=== PATIENT | female | born 1975 | race Caucasian/White ===

== ENCOUNTER 2020-08-05 09:18 | Inpatient (IN) ==
[2020-08-05] MEDS ORDERED: 0.9 % SODIUM CHLORIDE 1,000 ML IV ONE (09:34)
[2020-08-05] MEDS ORDERED: methylPREDNISolone SOD SUCC 40 MG/ML VIAL IV ONE (09:54)
[2020-08-05] MEDS ORDERED: IPRATROPIUM/ALBUTEROL 3 ML AMPUL.NEB NEB ONE (09:54)
--- NOTE | 2020-08-05 10:01 | Emergency Department Note ---
SOB HPI General Chief Complaint: Shortness of Breath/Dyspnea Stated Complaint: short of breath, covid positive Time Seen by Provider: 08/05/20 09:34 Source: patient Mode of arrival: wheelchair Limitations: no limitations History of Present Illness HPI Narrative: Narrative: 45-year-old female comes in for a 9-day history of Covid test positive with worsening shortness of breath. She tested positive at [facility] with her PCP 9 days ago. This morning she could not catch her breath and so came in. She has been febrile nauseous not been able to eat much. She is able to urinate. Feels constipated Oxygen saturations in triage down to 89% with any movement but she is in the low 90s with Rest Related Data Home Medications Medication Instructions Recorded Confirmed buspirone 30 mg PO PRN 10/20/18 07/11/20 levothyroxine 50 mcg PO DAILY 10/20/18 07/11/20 Biest .5/1 PO 08/02/19 07/11/20 azelastine 137 mcg (0.1 %) nasal 2 spray INTRANASAL QDAY ml 08/02/19 07/11/20 spray aerosol budesonide-formoterol HFA 160 1 puff INHALATION BID g 08/02/19 07/11/20 mcg-4.5 mcg/actuation aerosol inhaler meclizine 12.5 mg tablet 12.5 mg PO .Q4-6H PRN tab 08/02/19 07/11/20 rizatriptan 10 mg disintegrating 10 mg PO ONCE PRN 11/22/19 07/11/20 tablet Previous Rx's Medication Instructions Recorded alprazolam 1 mg tablet 1 mg PO HSP PRN #30 tab 07/16/19 omeprazole 20 mg capsule,delayed 20 mg PO BID #60 cap 01/03/20 release bupropion HCl 150 mg 24 hr tablet, 150 mg PO QAM #90 tab 01/16/20 extended release semaglutide 1 mg/dose (2 mg/1.5 1 mg SUB-Q QWEEK #3 ml 01/16/20 mL) subcutaneous pen injector chlorthalidone 25 mg tablet 25 mg PO DAILY #90 tab 02/04/20 metformin 500 mg tablet 1,000 mg PO BID #360 tab 02/04/20 trazodone 50 mg tablet 100 mg PO QHS #180 tab 02/04/20 metoprolol succinate 25 mg See Rx Instructions .ROUTE 03/21/20 tablet,extended release 24 hr .COMPLEX #90 tab blood sugar diagnostic See Rx Instructions .ROUTE 04/07/20 .COMPLEX #100 strip lisinopril 10 mg tablet See Rx Instructions .ROUTE 05/06/20 .COMPLEX #90 tab fluvoxamine 50 mg tablet See Rx Instructions .ROUTE 05/21/20 .COMPLEX #90 tab albuterol sulfate 90 mcg/actuation 2 puff INHALATION .q4-6h PRN #8.5 g 07/04/20 aerosol inhaler insulin degludec 100 unit/mL (3 See Rx Instructions .ROUTE 07/09/20 mL) subcutaneous pen .COMPLEX #15 ml azithromycin 250 mg tablet See Rx Instructions PO .COMPLEX #6 07/11/20 tab insulin aspart U-100 100 unit/mL 20 unit SUB-Q TID #30 ml 07/11/20 (3 mL) subcutaneous pen amoxicillin 500 mg capsule 1,000 mg PO Q12H #40 cap 07/21/20 acetaminophen 300 mg-codeine 30 mg 1 - 2 tab PO Q6H PRN #30 tab 07/29/20 tablet ondansetron HCl 4 mg tablet 4 mg PO Q8H PRN #30 tab 07/29/20 Allergies Allergy/AdvReac Type Severity Reaction Status Date / Time pioglitazone [From Actos] Allergy Mild Swelling Verified 08/05/20 09:22 phentermine Allergy Unknown Palpitation Verified 08/05/20 09:22 s Hay Fever Allergy Unknown dust and Uncoded 07/29/20 13:32 pollen Review of Systems ROS ROS Narrative: Narrative: All systems ED: reviewed and negative except as stated. [facility] Narrative Patient History Narrative: Narrative: Medical/Surgical/Family History All Active Problems (Updated 08/05/20 @ 10:35 by Mina Mendez MD) Pneumonia due to 2019 novel coronavirus (Acute) Sinusitis (Acute) Viral syndrome (Acute) Cough (Acute) Esophageal dysmotility (Chronic) History of colonoscopy (Chronic ~2003) Edema (Chronic) Obsessive-compulsive personality disorder (Chronic) Essential (primary) hypertension (Chronic) Hyperlipidemia, unspecified (Chronic) Anemia (Chronic) Type 2 diabetes mellitus without complications (Chronic) Contraception, device intrauterine, checking (Chronic) Adult hypothyroidism (Chronic) Migraine with aura, intractable, with status migrainosus (Chronic) Type 2 diabetes mellitus with hyperglycemia (Chronic) Obesity (Chronic) Adult general medical exam (Chronic) Insomnia (Chronic) Anxiety (Chronic) Depression (Chronic) Body mass index (BMI) 35 or more (Chronic) Dysuria (Chronic) Candidal vaginitis (Chronic) Lumbar back pain (Chronic) Menopausal symptoms (Chronic) Diffuse spasm of esophagus (Chronic) Palpitations (Chronic) Vertigo (Chronic) History of hysterectomy with bilateral oophorectomy (Chronic) LAP-BAND surgery status (Chronic) History of bladder surgery (Chronic) Hx of tonsillectomy (Chronic) History of section (Chronic) Enlarged uterus (Chronic) Ovarian cyst (Chronic) Medical History Adult general medical exam (Chronic) Adult hypothyroidism (Chronic) Anemia (Chronic) Anxiety (Chronic) Body mass index (BMI) 35 or more (Chronic) Candidal vaginitis (Chronic) Chronic lumbar pain (Acute) Contraception, device intrauterine, checking (Chronic) Cough (Acute) Depression (Chronic) Diffuse spasm of esophagus (Chronic) Dysuria (Chronic) Esophageal dysmotility (Chronic) Essential (primary) hypertension (Chronic) Hyperlipidemia, unspecified (Chronic) Insomnia (Chronic) Lumbar back pain (Chronic) Menopausal symptoms (Chronic) Migraine with aura, intractable, with status migrainosus (Chronic) Obesity (Chronic) Obsessive-compulsive personality disorder (Chronic) Palpitations (Chronic) Type 2 diabetes mellitus with hyperglycemia (Chronic) Type 2 diabetes mellitus without complications (Chronic) Vertigo (Chronic) Viral syndrome (Acute) Surgical History History of bladder surgery (Chronic) 08/2007 History of section (Chronic) 10/2002 & 06/2005 History of colonoscopy (Chronic ~2003) Dr Ramirez History of hysterectomy with bilateral oophorectomy (Chronic) Total Hysterectomy 12/2018 Hx of tonsillectomy (Chronic) 1980 LAP-BAND surgery status (Chronic) 12/2010 - No longer usable. Family History Mother Thyroid disease Father Alcoholism Hypertension Diabetes Daughter No problems noted. Brother Alcoholism Hypertension Grandmother Glaucoma maternal & paternal Hypertension paternal Colon cancer paternal Diabetes paternal Alcoholism paternal Emphysema lung paternal Grandfather Hypertension paternal Alcoholism paternal Diabetes paternal Social History Smoking Status: Former smoker Alcohol Intake Frequency: 0-2 drinks per day Substance Use: does not use Exam Narrative Narrative: Narrative:No acute distress resting however when she starts to talk she does have some wheezing.Normocephalic atraumatic. Conjunctive are clear sclerae white nonicteric. No nasal discharge or congestion. Oropharynx pink but with dry buccal mucosa.Neck is supple without lymphadenopathy or thyromegaly. Heart is regular rhythm but mildly tachycardic. Lungs with wheezing scattered rhonchi. She is working a little bit harder than normal to breathe. Abdomen is soft nontender nondistended. No pedal edema. Alert oriented General Limitations: no limitations Course Vital Signs Vital signs: Vital Signs Temperature 101.6 F H 08/05/20 09:19 Pulse Rate 102 H 08/05/20 09:19 Respiratory Rate 24 H 08/05/20 09:19 Blood Pressure 113/78 08/05/20 09:19 Pulse Oximetry (%) 92 08/05/20 09:19 Temperature 99.6 F H 08/05/20 11:52 Pulse Rate 84 08/05/20 11:31 Respiratory Rate 12 08/05/20 11:31 Blood Pressure 125/84 08/05/20 11:31 Pulse Oximetry (%) 94 08/05/20 11:31 MDM MDM Narrative Medical decision making narrative: Narrative: So increasing worsening Covid symptoms including shortness of breath now. We will go ahead and get ABG chest x-ray EKG and start her on treatment with Solu-Medrol and DuoNeb. Laboratory and IV fluid is ordered Breathing treatment did not help. Her oxygen levels continue to drop into the high 80s with any movement. Chest x-ray shows left lower lobe pneumonia associated with Covid. We will start remdesivir. She will need to come in the hospital Discussed the case with Dr. Marquez, our hospitalist. He agreed To accept the patient for further care and evaluation in the hospital Lab Data Lab results reviewed: Yes I reviewed the patient's lab results. Lab results narrative: Arterial blood gas shows a pH of 7.48 PCO2 33 PO2 of 62 on room air Result diagrams: 08/05/20 09:47 08/05/20 09:46 Labs: Lab Results 08/05/20 08/05/20 08/05/20 Range/Units 09:46 09:47 09:47 WBC 6.1 (4.5-11.0) K/mcL RBC 4.56 (4.00-5.20) M/mcL Hgb 13.5 (12.0-15.0) g/dL Hct 39.8 (36.0-48.0) % MCV 87.3 (80.0-100.0) fL MCH 29.6 (26.0-34.0) pg MCHC 33.9 (31.0-36.0) g/dL RDW 12.6 (11.5-14.5) % Plt Count 255 (140-440) K/mcL MPV 11.6 H (7.4-10.4) fL Neut % (Auto) 79.2 H (38.0-78.0) % Lymph % (Auto) 15.6 (15.0-49.0) % [place] % (Auto) 4.8 (1.0-12.0) % Eos % (Auto) 0.2 (0.0-7.0) % Baso % (Auto) 0.2 (0.0-2.0) % Lymph # (Auto) 0.95 L (1.50-4.80) K/mcL [place] # (Auto) 0.29 (0.10-0.90) K/mcL Eos # (Auto) 0.01 (0.00-0.70) K/mcL Baso # (Auto) 0.01 (0.00-0.20) K/mcL Absolute Neutrophils 4.83 (1.80-8.00) K/mcL VBG Lactic Acid 1.3 (0.5-2.0) mmol/L Sodium 134 (133-145) mmol/L Potassium 3.6 (3.3-5.1) mmol/L Chloride 98 (96-108) mmol/L Carbon Dioxide 22 (22-30) mmol/L Anion Gap 14.0 (8.0-16.0) BUN 10 (6-20) mg/dL Creatinine 1.0 (0.6-1.1) mg/dL GFR Calculation 68 Glucose 162 H (70-105) mg/dL Calcium 8.1 L (8.6-10.4) mg/dL Magnesium 1.9 (1.6-2.5) mg/dL Total Bilirubin 0.4 (0.1-1.0) mg/dL AST 45 H (<32) U/L ALT 45 H (<40) U/L Alkaline Phosphatase 97 (39-117) U/L Troponin T (<0.03) ng/mL NT-Pro-B Natriuret Pep 26.7 (<125.0) pg/mL Total Protein 7.0 (5.9-8.4) gm/dL Albumin 3.8 (3.2-5.2) gm/dL Globulin 3.2 (2.2-3.7) gm/dL Albumin/Globulin Ratio 1.2 (1.0-2.3) Lipase 46 (7-60) U/L Procalcitonin (<0.10) ng/mL 08/05/20 08/05/20 Range/Units 09:47 09:47 WBC (4.5-11.0) K/mcL RBC (4.00-5.20) M/mcL Hgb (12.0-15.0) g/dL Hct (36.0-48.0) % MCV (80.0-100.0) fL MCH (26.0-34.0) pg MCHC (31.0-36.0) g/dL RDW (11.5-14.5) % Plt Count (140-440) K/mcL MPV (7.4-10.4) fL Neut % (Auto) (38.0-78.0) % Lymph % (Auto) (15.0-49.0) % [place] % (Auto) (1.0-12.0) % Eos % (Auto) (0.0-7.0) % Baso % (Auto) (0.0-2.0) % Lymph # (Auto) (1.50-4.80) K/mcL [place] # (Auto) (0.10-0.90) K/mcL Eos # (Auto) (0.00-0.70) K/mcL Baso # (Auto) (0.00-0.20) K/mcL Absolute Neutrophils (1.80-8.00) K/mcL VBG Lactic Acid (0.5-2.0) mmol/L Sodium (133-145) mmol/L Potassium (3.3-5.1) mmol/L Chloride (96-108) mmol/L Carbon Dioxide (22-30) mmol/L Anion Gap (8.0-16.0) BUN (6-20) mg/dL Creatinine (0.6-1.1) mg/dL GFR Calculation Glucose (70-105) mg/dL Calcium (8.6-10.4) mg/dL Magnesium (1.6-2.5) mg/dL Total Bilirubin (0.1-1.0) mg/dL AST (<32) U/L ALT (<40) U/L Alkaline Phosphatase (39-117) U/L Troponin T < 0.01 (<0.03) ng/mL NT-Pro-B Natriuret Pep (<125.0) pg/mL Total Protein (5.9-8.4) gm/dL Albumin (3.2-5.2) gm/dL Globulin (2.2-3.7) gm/dL Albumin/Globulin Ratio (1.0-2.3) Lipase (7-60) U/L Procalcitonin 0.12 H (<0.10) ng/mL Radiology Data Radiology results reviewed: Yes I reviewed the patient's radiology results. Radiology results narrative: One-view portable chest x-ray shows patchy infiltrate especially left lower lung EKG Data EKG #1: EKG attestation: Yes I reviewed and interpreted this EKG. EKG results narrative: EKG shows a rate of 97 sinus rhythm borderline low voltage in extremity leads Discharge Plan Patient/Caregiver Discharge Instructions Pt seen by [facility]/PA only: No Clinical Impression: Pneumonia due to 2019 novel coronavirus Patient Disposition: Xfer As Inpt ([facility]) Condition: Fair Follow up with: Malaika Cotter ARNP [Primary Care Provider] - Prescriptions: No Action semaglutide [Ozempic] 0.25 mg or 0.5 mg(2 mg/1.5 mL) pen injector RF: 0 omeprazole 20 mg capsule,delayed release(DR/EC) 20 mg PO BID Qty: 60 RF: 4 semaglutide 1 mg/dose (2 mg/1.5 mL) subcutaneous pen injector 1 mg/dose (2 mg/1.5 mL) pen injector 1 mg SUB-Q QWEEK Qty: 3 RF: 4 bupropion HCl 150 mg tablet extended release 24 hr 150 mg PO QAM Qty: 90 RF: 1 insulin aspart U-100 100 unit/mL (3 mL) insulin pen 20 unit SUB-Q TID Qty: 30 RF: 6 azithromycin [Zithromax] 250 mg tablet See Rx Instructions PO .COMPLEX Qty: 6 RF: 0 amoxicillin 500 mg capsule 1,000 mg PO Q12H Qty: 40 RF: 0 ondansetron HCl [Zofran] 4 mg tablet 4 mg PO Q8H PRN (Reason: nausea and vomiting) Qty: 30 RF: 0 acetaminophen-codeine 300-30 mg tablet 1 - 2 tab PO Q6H PRN (Reason: Pain) Qty: 30 RF: 3 alprazolam 1 mg tablet 1 mg PO HSP PRN (Reason: Anxiety) Qty: 30 RF: 1 trazodone 50 mg tablet 100 mg PO QHS Qty: 180 RF: 3 chlorthalidone 25 mg tablet 25 mg PO DAILY Qty: 90 RF: 3 metformin [Glucophage] 500 mg tablet 1,000 mg PO BID Qty: 360 RF: 3 metoprolol succinate 25 mg tablet extended release 24 hr See Rx Instructions .ROUTE .COMPLEX Qty: 90 RF: 0 blood sugar diagnostic [Contour Next Test Strips] Strip See Rx Instructions .ROUTE .COMPLEX Qty: 100 RF: 3 lisinopril 10 mg tablet See Rx Instructions .ROUTE .COMPLEX Qty: 90 RF: 1 fluvoxamine 50 mg tablet See Rx Instructions .ROUTE .COMPLEX Qty: 90 RF: 1 insulin degludec [Tresiba FlexTouch U-100] 100 unit/mL (3 mL) insulin pen See Rx Instructions .ROUTE .COMPLEX Qty: 15 RF: 3 Symbicort 160-4.5 mcg/actuation HFA aerosol inhaler 1 puff INHALATION BID RF: 0 azelastine 137 mcg (0.1 %) aerosol,spray 2 spray INTRANASAL QDAY RF: 0 Biest .5/1 PO RF: 0 meclizine 12.5 mg tablet 12.5 mg tablet 12.5 mg PO .Q4-6H PRNRF: 0 rizatriptan 10 mg tablet,disintegrating 10 mg PO ONCE PRNRF: 0 albuterol sulfate [ProAir HFA] 90 mcg/actuation HFA aerosol inhaler 2 puff INHALATION .q4-6h PRN (Reason: cough, shortness of breath, wheezing) Qty: 8.5 RF: 0 levothyroxine 50 MCG tablet 50 mcg PO DAILY RF: 0 buspirone 30 MG tablet 30 mg PO PRN (Reason: Anxiety/Sedation) RF: 0
--- NOTE | 2020-08-05 10:26 | XRay Report ---
CLINICAL INFORMATION: dyspnea COMPARISON: 12/09/2014 FINDINGS: Heart, mediastinum and pulmonary vessels are normal for technique. Minimal patchy infiltrate seen in the left midlung and right base. No effusion IMPRESSION: Mild patchy infiltrate left midlung and right base. Suggest two-view follow-up chest x-ray one to two days Interpreted and Authenticated by: Dewayne Thomas 08/05/20
[2020-08-05 10:27] LABS: Basophils # (Auto) 0.01 K/mcL (0.00-0.20); Basophils % (Auto) 0.2 % (0.0-2.0); Eosinophils # (Auto) 0.01 K/mcL (0.00-0.70); Eosinophils % (Auto) 0.2 % (0.0-7.0); Hematocrit 39.8 % (36.0-48.0); Hemoglobin 13.5 g/dL (12.0-15.0); Lymphocytes # (Auto) 0.95 K/mcL (1.50-4.80); Lymphocytes % (Auto) 15.6 % (15.0-49.0); Mean Cell Volume 87.3 fL (80.0-100.0); Mean Corpuscular HGB Conc 33.9 g/dL (31.0-36.0); Mean Platelet Volume 11.6 fL (7.4-10.4); Monocytes # (Auto) 0.29 K/mcL (0.10-0.90); Monocytes % (Auto) 4.8 % (1.0-12.0); Neutrophils % (Auto) 79.2 % (38.0-78.0); Platelet Count 255 K/mcL (140-440); RBC 4.56 M/mcL (4.00-5.20); Red Cell Distribution Width 12.6 % (11.5-14.5); WBC 6.1 K/mcL (4.5-11.0)
[2020-08-05 10:53] LABS: proBNP 26.7 pg/mL (<125.0)
[2020-08-05] MEDS ORDERED: REMDESIVIR 200 MG in 0.9 % SODIUM CHLORIDE 250 ML IV ONE (10:54)
[2020-08-05 10:55] LABS: ALT/SGPT 45 U/L (<40); AST/SGOT 45 U/L (<32); Albumin 3.8 gm/dL (3.2-5.2); Albumin/Globulin Ratio 1.2 (1.0-2.3); Alkaline Phosphatase 97 U/L (39-117); Bilirubin,Total 0.4 mg/dL (0.1-1.0); Blood Urea Nitrogen 10 mg/dL (6-20); Calcium 8.1 mg/dL (8.6-10.4); Carbon Dioxide 22 mmol/L (22-30); Chloride 98 mmol/L (96-108); Globulin 3.2 gm/dL (2.2-3.7); Glomerular Filtration Rate 68; Glucose 162 mg/dL (70-105)
[2020-08-05] MEDS ORDERED: ONDANSETRON 4 MG/2 ML VIAL IV PRN ×2 (12:36→13:53)
[2020-08-05] MEDS ORDERED: ALBUTEROL SULFATE 2.5 MG/3 ML NEBULIZER INH PRN ×2 (12:36→13:53)
[2020-08-05] MEDS ORDERED: IPRATROPIUM/ALBUTEROL 3 ML AMPUL.NEB NEB PRN (12:36)
[2020-08-05] MEDS ORDERED: AZITHROMYCIN 500 MG in DEXTROSE 5% IN WATER 250 ML IV SCH (12:45)
[2020-08-05] MEDS ORDERED: cefTRIAXone 2 GM in DEXTROSE 5% IN WATER 50 ML IV SCH (12:45)
[2020-08-05] MEDS ORDERED: hydrALAZINE 20 MG/ML VIAL IV PRN ×2 (12:48→13:53)
[2020-08-05] MEDS ORDERED: 0.9 % SODIUM CHLORIDE 10 ML SYRINGE IV SCH (14:00)
[2020-08-05] MEDS ORDERED: METOCLOPRAMIDE 10 MG/2 ML VIAL IV PRN (14:15)
[2020-08-05] MEDS ORDERED: DEXTROSE 31 GM ORAL.SUSP PO PRN (14:15)
[2020-08-05] MEDS ORDERED: DEXTROSE 50% 50 ML VIAL IV PRN (14:15)
--- NOTE | 2020-08-05 14:25 | Internal Med History&Physical ---
HPI History of Present Illness Patient information: Note initiated : 08/05/20 at 2:16 pm Service Date, if different from initiated Date: [] Patient: Marisela Carr a 45 y/o F admitted on 08/05/20 for SOB, COVID Positive. Chief Complaint: [] History of present illness: Ms. Carr is a 45 year old F with a history of high blood pressure, diabetes type 2 and hypothyroidism who presented to the ER due to shortness of breath. As per patient, she was diagnosed with COVID-19 9 days ago. Today she feels shortness of breath and went to the ER. In the ER, she was found to have oxygen desaturation 89%. Chest x-ray showed mild patchy infiltrate left midlung and right base. When I saw this patient, other than the symptoms mentioned above, patient with a fine. Review of Systems All systems: reviewed and no additional remarkable complaints except as stated PFSH PFSH All Active Problems Pneumonia due to 2019 novel coronavirus (Acute) Sinusitis (Acute) Viral syndrome (Acute) Cough (Acute) Esophageal dysmotility (Chronic) History of colonoscopy (Chronic ~2004) Edema (Chronic) Obsessive-compulsive personality disorder (Chronic) Essential (primary) hypertension (Chronic) Hyperlipidemia, unspecified (Chronic) Anemia (Chronic) Type 2 diabetes mellitus without complications (Chronic) Contraception, device intrauterine, checking (Chronic) Adult hypothyroidism (Chronic) Migraine with aura, intractable, with status migrainosus (Chronic) Type 2 diabetes mellitus with hyperglycemia (Chronic) Obesity (Chronic) Adult general medical exam (Chronic) Insomnia (Chronic) Anxiety (Chronic) Depression (Chronic) Body mass index (BMI) 35 or more (Chronic) Dysuria (Chronic) Candidal vaginitis (Chronic) Lumbar back pain (Chronic) Menopausal symptoms (Chronic) Diffuse spasm of esophagus (Chronic) Palpitations (Chronic) Vertigo (Chronic) History of hysterectomy with bilateral oophorectomy (Chronic) LAP-BAND surgery status (Chronic) History of bladder surgery (Chronic) Hx of tonsillectomy (Chronic) History of section (Chronic) Enlarged uterus (Chronic) Ovarian cyst (Chronic) Medical History Adult general medical exam (Chronic) Adult hypothyroidism (Chronic) Anemia (Chronic) Anxiety (Chronic) Body mass index (BMI) 35 or more (Chronic) Candidal vaginitis (Chronic) Chronic lumbar pain (Acute) Contraception, device intrauterine, checking (Chronic) Cough (Acute) Depression (Chronic) Diffuse spasm of esophagus (Chronic) Dysuria (Chronic) Esophageal dysmotility (Chronic) Essential (primary) hypertension (Chronic) Hyperlipidemia, unspecified (Chronic) Insomnia (Chronic) Lumbar back pain (Chronic) Menopausal symptoms (Chronic) Migraine with aura, intractable, with status migrainosus (Chronic) Obesity (Chronic) Obsessive-compulsive personality disorder (Chronic) Palpitations (Chronic) Type 2 diabetes mellitus with hyperglycemia (Chronic) Type 2 diabetes mellitus without complications (Chronic) Vertigo (Chronic) Viral syndrome (Acute) Surgical History History of bladder surgery (Chronic) 08/2007 History of section (Chronic) 10/2002 & 06/2005 History of colonoscopy (Chronic ~2003) Dr Ramirez History of hysterectomy with bilateral oophorectomy (Chronic) Total Hysterectomy 12/2018 Hx of tonsillectomy (Chronic) 1980 LAP-BAND surgery status (Chronic) 12/2010 - No longer usable. Family History Mother Thyroid disease Father Alcoholism Hypertension Diabetes Daughter No problems noted. 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 smoking status: Former smoker alcohol intake frequency: 0-2 drinks per day substance use type: does not use gerardo/catholic: Other special gerardo needs: No additional history: Has twins MEDS/ALLERGIES Home Medications and Allergies Home Medications Medication Instructions Recorded Confirmed Type buspirone 30 mg PO PRN 10/20/18 07/11/20 History levothyroxine 50 mcg PO DAILY 10/20/18 07/11/20 History alprazolam 1 mg tablet 1 mg PO HSP PRN #30 tab 07/16/19 07/11/20 Rx Biest .5/1 PO 08/02/19 07/11/20 History azelastine 137 mcg (0.1 %) nasal 2 spray INTRANASAL QDAY ml 08/02/19 07/11/20 History spray aerosol budesonide-formoterol HFA 160 1 puff INHALATION BID g 08/02/19 07/11/20 History mcg-4.5 mcg/actuation aerosol inhaler meclizine 12.5 mg tablet 12.5 mg PO .Q4-6H PRN tab 08/02/19 07/11/20 History rizatriptan 10 mg disintegrating 10 mg PO ONCE PRN 11/22/19 07/11/20 History tablet omeprazole 20 mg capsule,delayed 20 mg PO BID #60 cap 01/03/20 07/11/20 Rx release bupropion HCl 150 mg 24 hr tablet, 150 mg PO QAM #90 tab 01/16/20 07/11/20 Rx extended release semaglutide 1 mg/dose (2 mg/1.5 1 mg SUB-Q QWEEK #3 ml 01/16/20 07/11/20 Rx mL) subcutaneous pen injector chlorthalidone 25 mg tablet 25 mg PO DAILY #90 tab 02/04/20 07/11/20 Rx metformin 500 mg tablet 1,000 mg PO BID #360 tab 02/04/20 07/11/20 Rx trazodone 50 mg tablet 100 mg PO QHS #180 tab 02/04/20 07/11/20 Rx metoprolol succinate 25 mg See Rx Instructions .ROUTE 03/21/20 07/11/20 Rx tablet,extended release 24 hr .COMPLEX #90 tab blood sugar diagnostic See Rx Instructions .ROUTE 04/07/20 07/11/20 Rx .COMPLEX #100 strip lisinopril 10 mg tablet See Rx Instructions .ROUTE 05/06/20 07/11/20 Rx .COMPLEX #90 tab fluvoxamine 50 mg tablet See Rx Instructions .ROUTE 05/21/20 07/11/20 Rx .COMPLEX #90 tab albuterol sulfate 90 mcg/actuation 2 puff INHALATION .q4-6h PRN #8.5 g 07/04/20 07/11/20 Rx aerosol inhaler insulin degludec 100 unit/mL (3 See Rx Instructions .ROUTE 07/09/20 07/11/20 Rx mL) subcutaneous pen .COMPLEX #15 ml azithromycin 250 mg tablet See Rx Instructions PO .COMPLEX #6 07/11/20 07/11/20 Rx tab insulin aspart U-100 100 unit/mL 20 unit SUB-Q TID #30 ml 07/11/20 07/11/20 Rx (3 mL) subcutaneous pen amoxicillin 500 mg capsule 1,000 mg PO Q12H #40 cap 07/21/20 07/21/20 Rx acetaminophen 300 mg-codeine 30 mg 1 - 2 tab PO Q6H PRN #30 tab 07/29/20 07/29/20 Rx tablet ondansetron HCl 4 mg tablet 4 mg PO Q8H PRN #30 tab 07/29/20 07/29/20 Rx Allergies Allergy/AdvReac Type Severity Reaction Status Date / Time pioglitazone [From Actos] Allergy Mild Swelling Verified 08/05/20 09:22 phentermine Allergy Unknown Palpitation Verified 08/05/20 09:22 s Hay Fever Allergy Unknown dust and Uncoded 07/29/20 13:32 pollen EXAM Constitutional Vitals: Temp Pulse Resp BP Pulse Ox 98.6 F 95 H 18 139/95 94 08/05/20 13:54 08/05/20 13:54 08/05/20 13:54 08/05/20 13:54 08/05/20 13:54 Additional findings Additional findings: General: Alert, Awake, No acute Distress Eyes/N/T: EOMI, PERRL, dry MM Head/Neck: neck supple no meningismus , normocephalic atraumatic CV: RRR, No murmurs, normal s1/s2 Pulm: Coarse breathing sounds Abd: soft, nontender, +BS x4 Ext: no clubbing/cyanosis/edema Neuro: Alert & Oriented x 2, no focal neurological deficits Skin: warm/dry Psych: Normal mood DATA Data Completed and Pending Labs: Labs from last 24 hours 08/05/20 08/05/20 08/05/20 13:20 13:20 13:20 WBC RBC Hgb Hct MCV MCH MCHC RDW Plt Count MPV Neut % (Auto) Lymph % (Auto) Garvin % (Auto) Eos % (Auto) Baso % (Auto) Lymph # (Auto) Garvin # (Auto) Eos # (Auto) Baso # (Auto) Absolute Neutrophils D-Dimer Pending VBG Lactic Acid Pending Sodium Potassium Chloride Carbon Dioxide Anion Gap BUN Creatinine GFR Calculation Glucose Hemoglobin A1c Pending Estim Average Glucose Pending Calcium Phosphorus Pending Magnesium Pending Ferritin Pending Total Bilirubin AST ALT Alkaline Phosphatase Troponin T C-Reactive Protein Pending NT-Pro-B Natriuret Pep Total Protein Albumin Globulin Albumin/Globulin Ratio Lipase Procalcitonin 08/05/20 08/05/20 08/05/20 09:47 09:47 09:47 WBC RBC Hgb Hct MCV MCH MCHC RDW Plt Count MPV Neut % (Auto) Lymph % (Auto) Garvin % (Auto) Eos % (Auto) Baso % (Auto) Lymph # (Auto) Garvin # (Auto) Eos # (Auto) Baso # (Auto) Absolute Neutrophils D-Dimer VBG Lactic Acid 1.3 Sodium Potassium Chloride Carbon Dioxide Anion Gap BUN Creatinine GFR Calculation Glucose Hemoglobin A1c Estim Average Glucose Calcium Phosphorus Magnesium Ferritin Total Bilirubin AST ALT Alkaline Phosphatase Troponin T < 0.01 C-Reactive Protein NT-Pro-B Natriuret Pep Total Protein Albumin Globulin Albumin/Globulin Ratio Lipase Procalcitonin 0.12 H 08/05/20 08/05/20 09:47 09:46 WBC 6.1 RBC 4.56 Hgb 13.5 Hct 39.8 MCV 87.3 MCH 29.6 MCHC 33.9 RDW 12.6 Plt Count 255 MPV 11.6 H Neut % (Auto) 79.2 H Lymph % (Auto) 15.6 Garvin % (Auto) 4.8 Eos % (Auto) 0.2 Baso % (Auto) 0.2 Lymph # (Auto) 0.95 L Garvin # (Auto) 0.29 Eos # (Auto) 0.01 Baso # (Auto) 0.01 Absolute Neutrophils 4.83 D-Dimer VBG Lactic Acid Sodium 134 Potassium 3.6 Chloride 98 Carbon Dioxide 22 Anion Gap 14.0 BUN 10 Creatinine 1.0 GFR Calculation 68 Glucose 162 H Hemoglobin A1c Estim Average Glucose Calcium 8.1 L Phosphorus Magnesium 1.9 Ferritin Total Bilirubin 0.4 AST 45 H ALT 45 H Alkaline Phosphatase 97 Troponin T C-Reactive Protein NT-Pro-B Natriuret Pep 26.7 Total Protein 7.0 Albumin 3.8 Globulin 3.2 Albumin/Globulin Ratio 1.2 Lipase 46 Procalcitonin A/P Narrative A/P Narrative: 1. Acute hypoxic respiratory failure In the ER, she was evaluated with desaturation 89% Pulse ox Oxygen therapy to keep her saturation greater than 93% 2. Pneumonia, covid 19 or CAP Respiratory panel negative COVID-19 positive 9 days ago MRSA screen Blood culture Sputum culture Lactic acid, procalcitonin 1.12, ferritin, CRP, D-dimer, vitamin D Aspirin Remdesivir -5-day course Dexamethasone 6 mg p.o. daily x 10 days Lovenox 100 mg twice daily Thiamine and vitamin D 3. Transaminitis Repeat liver enzyme in morning 4. HTN Continue home medication 5. DM type 2 Hemoglobin A1c Diabetic diet Insulin sliding scale We will adjust insulin based on blood sugar level 6. Hypothyroidism Continue home Synthroid 7. DVT prophylaxis: Lovenox 8. 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
[2020-08-05 14:33] LABS: Phosphorous 2.3 mg/dL (2.5-4.5)
[2020-08-05 14:43] LABS: Ferritin 225.4 ng/mL (13.0-150.0)
[2020-08-05] MEDS ORDERED: ALPRAZolam 0.5 MG TABLET PO PRN (14:52)
[2020-08-05] MEDS: AZITHROMYCIN 500 MG in DEXTROSE 5% IN WATER 250 ML IV SCH (15:12)
[2020-08-05] MEDS: 0.9 % SODIUM CHLORIDE 10 ML SYRINGE IV SCH ×2 (15:12→22:00)
[2020-08-05] MEDS: cefTRIAXone 2 GM in DEXTROSE 5% IN WATER 50 ML IV SCH (16:16)
[2020-08-05] MEDS: INSULIN LISPRO 1 UNIT/0.01 ML UNIT SQ SCH ×2 (16:26→21:55)
[2020-08-05 19:01] LABS: Estimated Average Glucose(eAG) 200 mg/dL; Hemoglobin A1C 8.6 % Hgb (4.0-6.0)
[2020-08-05] MEDS ORDERED: DOCUSATE SODIUM 100 MG CAPSULE PO SCH (21:00)
[2020-08-05] MEDS ORDERED: SENNOSIDES 1 TABLET PO SCH (21:00)
[2020-08-05] MEDS: DOCUSATE SODIUM 100 MG CAPSULE PO SCH (21:56)
[2020-08-05] MEDS: INSULIN GLARGINE, HUMAN 1 UNIT/0.01 ML SQ SCH (21:56)
[2020-08-05] MEDS: SENNOSIDES 1 TABLET PO SCH (21:57)
[2020-08-05] MEDS: LISINOPRIL 10 MG TABLET PO SCH (21:57)
[2020-08-06] MEDS: 0.9 % SODIUM CHLORIDE 10 ML SYRINGE IV SCH ×3 (05:15→21:13)
[2020-08-06 06:39] LABS: Basophils # (Auto) 0.01 K/mcL (0.00-0.20); Basophils % (Auto) 0.2 % (0.0-2.0); Eosinophils # (Auto) 0 K/mcL (0.00-0.70); Eosinophils % (Auto) 0 % (0.0-7.0); Hematocrit 37.9 % (36.0-48.0); Hemoglobin 12.6 g/dL (12.0-15.0); Lymphocytes # (Auto) 1.03 K/mcL (1.50-4.80); Lymphocytes % (Auto) 23.5 % (15.0-49.0); Mean Cell Volume 87.9 fL (80.0-100.0); Mean Corpuscular HGB Conc 33.2 g/dL (31.0-36.0); Mean Platelet Volume 11.5 fL (7.4-10.4); Monocytes # (Auto) 0.41 K/mcL (0.10-0.90); Monocytes % (Auto) 9.4 % (1.0-12.0); Neutrophils % (Auto) 66.9 % (38.0-78.0); Platelet Count 273 K/mcL (140-440); RBC 4.31 M/mcL (4.00-5.20); Red Cell Distribution Width 12.5 % (11.5-14.5); WBC 4.4 K/mcL (4.5-11.0)
[2020-08-06 07:11] LABS: ALT/SGPT 33 U/L (<40); AST/SGOT 25 U/L (<32); Albumin 3.6 gm/dL (3.2-5.2); Albumin/Globulin Ratio 1.2 (1.0-2.3); Alkaline Phosphatase 84 U/L (39-117); Bilirubin,Total 0.3 mg/dL (0.1-1.0); Blood Urea Nitrogen 12 mg/dL (6-20); Calcium 8.4 mg/dL (8.6-10.4); Carbon Dioxide 22 mmol/L (22-30); Chloride 103 mmol/L (96-108); Globulin 3.1 gm/dL (2.2-3.7); Glomerular Filtration Rate 89; Glucose 211 mg/dL (70-105)
[2020-08-06] MEDS: PANTOPRAZOLE 40 MG TABLET PO SCH (07:21)
[2020-08-06] MEDS: INSULIN LISPRO 1 UNIT/0.01 ML UNIT SQ SCH ×4 (07:21→21:12)
[2020-08-06] MEDS: LEVOTHYROXINE 50 MCG TABLET PO SCH (07:21)
[2020-08-06] MEDS ORDERED: PANTOPRAZOLE 40 MG TABLET PO SCH (07:30)
[2020-08-06] MEDS: METOPROLOL SUCCINATE 25 MG TAB.XL.24H PO SCH (08:22)
[2020-08-06] MEDS: DOCUSATE SODIUM 100 MG CAPSULE PO SCH ×2 (08:23→21:12)
[2020-08-06] MEDS: ASPIRIN 81 MG TAB.CHEW CHEWED SCH (08:23)
[2020-08-06] MEDS: buPROPion 150 MG TAB.XL.24H PO SCH (08:23)
[2020-08-06] MEDS: CHLORTHALIDONE 25 MG TABLET PO SCH (08:24)
[2020-08-06] MEDS: DEXAMETHASONE 4 MG TABLET PO SCH (08:24)
[2020-08-06] MEDS: BIEST PO SCH (08:26)
[2020-08-06] MEDS: cefTRIAXone 2 GM in DEXTROSE 5% IN WATER 50 ML IV SCH (08:30)
[2020-08-06] MEDS ORDERED: ASPIRIN 81 MG TAB.CHEW CHEWED SCH (09:00)
[2020-08-06] MEDS ORDERED: ENOXAPARIN 40 MG/0.4 ML SYRINGE SQ SCH ×2 (09:00)
[2020-08-06] MEDS: AZITHROMYCIN 500 MG in DEXTROSE 5% IN WATER 250 ML IV SCH (09:15)
[2020-08-06] MEDS ORDERED: FLU VACC QS2020-21(6MOS UP)/PF 60 MCG/0.5 ML SYRINGE IM ONE (10:00)
[2020-08-06] MEDS: REMDESIVIR 100 MG in 0.9 % SODIUM CHLORIDE 250 ML IV SCH (11:29)
--- NOTE | 2020-08-06 12:46 | Event Note ---
Event Note Event Note: Advanced Care Planning Documents: Parties in Attendance: pt pt's decisional Capacity: Yes POLST form completed: Not. I explained CPR and intubation in detail to her. She agreed with CPR and intubation.
--- NOTE | 2020-08-06 12:52 | Internal Med Progress Note ---
SUBJECTIVE Subjective Patient information: Note initiated : 08/06/20 at 12:48 pm Service Date, if different from initiated Date: [] Patient: Marisela Carr 45 y/o F admitted on 08/05/20 for SOB, COVID Positive. Chief Complaint: [] History of present illness: Ms. Carr is a 45 year old F with a history of high blood pressure, diabetes type 2 and hypothyroidism who presented to the ER due to shortness of breath. As per patient, she was diagnosed with COVID-19 9 days ago. Today she feels shortness of breath and went to the ER. In the ER, she was found to have oxygen desaturation 89%. Chest x-ray showed mild patchy infiltrate left midlung and right base. When I saw this patient, other than the symptoms mentioned above, patient with a fine. 08/06 Still complains of shortness of breath. Otherwise she denies headache, fever, chills, nausea or vomiting. Vital signs are stable and acceptable. She is now on 2 L with good oxygen saturation. Hemoglobin A1c 8.6, Phos 2.3, procalcitonin 0.12, ferritin 225.4, CRP 8.5 Review of Systems Constitutional Vitals: Vital Signs Temp Pulse Resp BP Pulse Ox 97.6 F 75 18 108/76 95 08/06/20 11:48 08/06/20 11:48 08/06/20 11:48 08/06/20 11:48 08/06/20 12:28 Period Temp Pulse Resp BP Sys/Roy Pulse Ox Last 24 Hr 97.6 F-98.6 F 73-99 12-18 108-139/68-95 93-96 Intake and Output 08/05/20 08/06/20 08/06/20 21:59 05:59 13:59 Intake Total 540 800 50 Output Total 1600 Balance 540 -800 50 Weight 118.473 kg Intake & Output: Intake & Output 08/05/20 08/06/20 08/06/20 21:59 05:59 13:59 Intake Total 540 800 50 Output Total 1600 Balance 540 -800 50 Weight 118.473 kg Intake: IV 300 50 Zithromax 500 mg In Dextrose 5% 250 in Water 250 ml @ 250 mls/hr IV Q24H [facility] Rx#:[id number] Rocephin 2 gm In Dextrose 5% in 50 50 Water 50 ml @ 100 mls/hr IV Q24H [facility] Rx#:[id number] Oral 240 800 Output: Void Amount 1600 Other: Meal Dinner Percent of Meal Consumed 50% Feeding Ability Independent Urine Appearance Clear Clear Urine Color Bright Yellow Bright Yellow Urine Odor Normal Stool Size Moderate Stool Color Brown Stool Consistency Formed # Voids 2 # Bowel Movements 1 Additional findings Additional findings: General: Alert, Awake, No acute Distress Eyes/N/T: EOMI, PERRL, dry MM Head/Neck: neck supple no meningismus , normocephalic atraumatic CV: RRR, No murmurs, normal s1/s2 Pulm: Coarse breathing sounds Abd: soft, nontender, +BS x4 Ext: no clubbing/cyanosis/edema Neuro: Alert & Oriented x 2, no focal neurological deficits Skin: warm/dry Psych: Normal mood OBJ DATA Labs CBC & Chem 7: 08/06/20 05:39 08/06/20 05:39 Labs: Abnormal Lab Results 08/06/20 08/06/20 08/06/20 07:41 05:39 05:39 WBC 4.4 L MPV 11.5 H Neut % (Auto) Lymph # (Auto) 1.03 L D-Dimer 0.73 H Glucose 211 H Hemoglobin A1c Calcium 8.4 L Phosphorus Ferritin AST ALT C-Reactive Protein Procalcitonin 08/05/20 08/05/20 08/05/20 13:20 09:47 09:47 WBC MPV 11.6 H Neut % (Auto) 79.2 H Lymph # (Auto) 0.95 L D-Dimer Glucose Hemoglobin A1c 8.6 H Calcium Phosphorus 2.3 L Ferritin 225.4 H AST ALT C-Reactive Protein 8.50 H Procalcitonin 0.12 H 08/05/20 09:46 WBC MPV Neut % (Auto) Lymph # (Auto) D-Dimer Glucose 162 H Hemoglobin A1c Calcium 8.1 L Phosphorus Ferritin AST 45 H ALT 45 H C-Reactive Protein Procalcitonin Meds: Medications Albuterol Sulfate (Ventolin) 2.5 mg INH Q2HP PRN PRN Reason: Shortness Of Breath Albuterol/Ipratropium (Duoneb) 3 ml NEB Q4HRT PRN PRN Reason: Shortness Of Breath Alprazolam (Xanax) 1 mg PO HSP PRN PRN Reason: Anxiety Aspirin (Aspirin) 81 mg CHEWED DAILY [facility] Last Admin: 08/06/20 08:23 Dose: 81 mg Documented by: Bupropion HCl ([facility] Xl) [facility] Last Admin: 08/06/20 08:23 Dose: 150 mg Documented by: Chlorthalidone (Hygroton) 25 mg PO DAILY [facility] Last Admin: 08/06/20 08:24 Dose: 25 mg Documented by: Dexamethasone (Decadron) 6 mg PO DAILY [facility] Last Admin: 08/06/20 08:24 Dose: 6 mg Documented by: Dextrose (Dextrose 50%) 0 ml IV UD PRN PRN Reason: Hypoglycemia Diagnostic Test (Pha) (Accu-Chek) 1 each FS [facility] Last Admin: 08/06/20 11:01 Dose: 1 each Documented by: Docusate Sodium (Colace) 100 mg PO BID [facility] Last Admin: 08/06/20 08:23 Dose: 100 mg Documented by: Enoxaparin Sodium (Lovenox) 100 mg SQ BID [facility] Glucose (Insta-Glucose) 15 gm PO PRN PRN PRN Reason: Hypoglycemia Hydralazine HCl (Apresoline) 10 mg IV Q4-6HP PRN PRN Reason: Hypertension Azithromycin 500 mg/ Dextrose 250 mls @ 250 mls/hr IV Q24H [facility]; Protocol Stop: 08/07/20 13:59 Last Admin: 08/06/20 09:15 Dose: 250 mls/hr Documented by: Ceftriaxone Sodium 2 gm/ (Dextrose) 50 mls @ 100 mls/hr IV Q24H [facility] Last Infusion: 08/06/20 09:24 Dose: Infused Documented by: REMDESIVIR 100 mg/ Sodium (Chloride) 250 mls @ 500 mls/hr IV Q24H [facility] Stop: 08/09/20 11:29 Last Admin: 08/06/20 11:29 Dose: 500 mls/hr Documented by: Insulin Glargine (Lantus) 10 unit SQ [facility] Last Admin: 08/05/20 21:56 Dose: 10 units Documented by: Insulin Human Lispro (Humalog) 0 unit SQ [facility]; Protocol Last Admin: 08/06/20 11:34 Dose: 4 unit Documented by: Levothyroxine [facility] ([facility]roid) [facility] Last Admin: 08/06/20 07:21 Dose: 50 mcg Documented by: Lisinopril (Zestril) 10 mg PO [facility] Last Admin: 08/05/20 21:57 Dose: 10 mg Documented by: Metoclopramide HCl (Reglan) 5 mg IV Q6HP PRN PRN Reason: Nausea And Vomiting Metoprolol Succinate (Toprol Xl) 25 mg PO DAILY [facility] Last Admin: 08/06/20 08:22 Dose: 25 mg Documented by: Pantoprazole Sodium (Protonix) 40 mg PO [facility] Last Admin: 08/06/20 07:21 Dose: 40 mg Documented by: Semaglutide [Ozempic (] 1 Mg Syringe) 1 dose SUB-Q QWEEK [facility] Biest 0.5 Mg Tab 1 dose PO DAILY [facility] Last Admin: 08/06/20 08:26 Dose: 1 dose Documented by: Fluvoxamine 50 Mg (Tab) 3 dose PO [facility] Senna (Senokot) 2 tab PO [facility] Last Admin: 08/05/20 21:57 Dose: Not Given Documented by: Sodium Chloride (Saline Flush) 10 ml IV Q8 [facility] Last Admin: 08/06/20 05:15 Dose: 10 ml Documented by: Trazodone HCl (Desyrel) 50 mg PO QHS [facility] A/P Narrative A/P Narrative: 1. Acute hypoxic respiratory failure In the ER, she was evaluated with desaturation 89% Pulse ox Oxygen therapy to keep her saturation greater than 93% 2. Pneumonia, covid 19 or CAP Respiratory panel negative COVID-19 positive 9 days ago MRSA screen negative Blood culture negative procalcitonin 0.12, ferritin 225.4, CRP 8.5, D-dimer 0.73 Aspirin 81 mg daily Remdesivir -5-day course Dexamethasone 6 mg p.o. daily x 10 days Lovenox 100 mg twice daily Thiamine and vitamin D 3. Transaminitis Repeat liver enzyme in morning 4. HTN Continue home medication 5. DM type 2 Hemoglobin A1c 8.6 Diabetic diet Insulin sliding scale We will adjust insulin based on blood sugar level 6. Hypothyroidism Continue home Synthroid 7. DVT prophylaxis: Lovenox 8. 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
[2020-08-06] MEDS: IPRATROPIUM/ALBUTEROL 3 ML AMPUL.NEB NEB PRN (12:55)
[2020-08-06] MEDS: ENOXAPARIN 100 MG/ML SYRINGE SQ SCH (21:11)
[2020-08-06] MEDS: LISINOPRIL 10 MG TABLET PO SCH (21:11)
[2020-08-06] MEDS: traZODone HCL 50 MG TABLET PO SCH (21:11)
[2020-08-06] MEDS: INSULIN GLARGINE, HUMAN 1 UNIT/0.01 ML SQ SCH (21:11)
[2020-08-06] MEDS: SENNOSIDES 1 TABLET PO SCH (21:12)
[2020-08-07] MEDS: 0.9 % SODIUM CHLORIDE 10 ML SYRINGE IV SCH ×3 (05:06→21:09)
[2020-08-07 06:50] LABS: Basophils # (Auto) 0 K/mcL (0.00-0.20); Basophils % (Auto) 0 % (0.0-2.0); Eosinophils # (Auto) 0 K/mcL (0.00-0.70); Eosinophils % (Auto) 0 % (0.0-7.0); Hematocrit 38.8 % (36.0-48.0); Hemoglobin 12.8 g/dL (12.0-15.0); Lymphocytes # (Auto) 1.49 K/mcL (1.50-4.80); Lymphocytes % (Auto) 28.9 % (15.0-49.0); Mean Cell Volume 88.4 fL (80.0-100.0); Mean Platelet Volume 11.3 fL (7.4-10.4); Monocytes # (Auto) 0.51 K/mcL (0.10-0.90); Monocytes % (Auto) 9.9 % (1.0-12.0); Neutrophils % (Auto) 61.2 % (38.0-78.0); Platelet Count 312 K/mcL (140-440); RBC 4.39 M/mcL (4.00-5.20); Red Cell Distribution Width 12.5 % (11.5-14.5); WBC 5.2 K/mcL (4.5-11.0)
[2020-08-07 07:07] LABS: ALT/SGPT 34 U/L (<40); AST/SGOT 31 U/L (<32); Albumin 3.5 gm/dL (3.2-5.2); Albumin/Globulin Ratio 1.1 (1.0-2.3); Alkaline Phosphatase 80 U/L (39-117); Bilirubin,Direct < 0.2 mg/dL (<0.3); Bilirubin,Total 0.3 mg/dL (0.1-1.0); Blood Urea Nitrogen 14 mg/dL (6-20); Calcium 8.7 mg/dL (8.6-10.4); Carbon Dioxide 22 mmol/L (22-30); Chloride 103 mmol/L (96-108); Globulin 3.3 gm/dL (2.2-3.7); Glomerular Filtration Rate 89; Glucose 211 mg/dL (70-105); Lactate Dehydrogenase 191 U/L (135-225); Phosphorous 3.8 mg/dL (2.5-4.5); Triglycerides 168 mg/dL (<150); Uric Acid 4.7 mg/dL (2.5-8.0)
[2020-08-07] MEDS ORDERED: INSULIN GLARGINE, HUMAN 1 UNIT/0.01 ML SQ ONE (07:20)
[2020-08-07] MEDS: LEVOTHYROXINE 50 MCG TABLET PO SCH (07:55)
[2020-08-07] MEDS: PANTOPRAZOLE 40 MG TABLET PO SCH (07:56)
[2020-08-07] MEDS: BIEST PO SCH (07:58)
[2020-08-07] MEDS: INSULIN LISPRO 1 UNIT/0.01 ML UNIT SQ SCH ×4 (08:53→21:09)
[2020-08-07] MEDS: ENOXAPARIN 100 MG/ML SYRINGE SQ SCH ×2 (08:53→21:10)
[2020-08-07] MEDS: METOPROLOL SUCCINATE 25 MG TAB.XL.24H PO SCH (08:54)
[2020-08-07] MEDS: IPRATROPIUM/ALBUTEROL 3 ML AMPUL.NEB NEB PRN ×2 (08:54→19:39)
[2020-08-07] MEDS: DOCUSATE SODIUM 100 MG CAPSULE PO SCH ×2 (08:54→21:04)
[2020-08-07] MEDS: DEXAMETHASONE 4 MG TABLET PO SCH (08:54)
[2020-08-07] MEDS: CHLORTHALIDONE 25 MG TABLET PO SCH (08:55)
[2020-08-07] MEDS: buPROPion 150 MG TAB.XL.24H PO SCH (08:55)
[2020-08-07] MEDS: ASPIRIN 81 MG TAB.CHEW CHEWED SCH (08:55)
[2020-08-07] MEDS: cefTRIAXone 2 GM in DEXTROSE 5% IN WATER 50 ML IV SCH (08:56)
[2020-08-07] MEDS: AZITHROMYCIN 500 MG in DEXTROSE 5% IN WATER 250 ML IV SCH (10:21)
[2020-08-07] MEDS: REMDESIVIR 100 MG in 0.9 % SODIUM CHLORIDE 250 ML IV SCH (11:36)
--- NOTE | 2020-08-07 14:24 | Internal Med Progress Note ---
SUBJECTIVE Subjective Patient information: Note initiated : 08/07/20 at 2:21 pm Service Date, if different from initiated Date: [] Patient: Marisela Carr 45 y/o F admitted on 08/05/20 for SOB, COVID Positive. Chief Complaint: [] Ms. Carr is a 45 year old F with a history of high blood pressure, diabetes type 2 and hypothyroidism who presented to the ER due to shortness of breath. As per patient, she was diagnosed with COVID-19 9 days ago. Today she feels shortness of breath and went to the ER. In the ER, she was found to have oxygen desaturation 89%. Chest x-ray showed mild patchy infiltrate left midlung and right base. When I saw this patient, other than the symptoms mentioned above, patient with a fine. 08/06 Still complains of shortness of breath. Otherwise she denies headache, fever, chills, nausea or vomiting. Vital signs are stable and acceptable. She is now on 2 L with good oxygen saturation. Hemoglobin A1c 8.6, Phos 2.3, procalcitonin 0.12, ferritin 225.4, CRP 8.5 08/07 When I saw this patient this morning, she was eating her breakfast. She does not have any complaints and feels fine. She is on room air to 1 L with good oxygen saturation. No overnight events Review of Systems Positive for shortness of breath. All other systems were reviewed and negative. Constitutional Vitals: Vital Signs Temp Pulse Resp BP Pulse Ox 96.7 F L 71 18 124/82 94 08/07/20 12:00 08/07/20 12:00 08/07/20 12:00 08/07/20 12:00 08/07/20 12:00 Period Temp Pulse Resp BP Sys/Roy Pulse Ox Last 24 Hr 96.5 F-98.7 F 67-78 16-18 114-124/74-90 91-95 Intake and Output 08/07/20 08/07/20 08/07/20 05:59 13:59 21:59 Intake Total 650 50 Balance 650 50 Intake & Output: Intake & Output 08/07/20 08/07/20 08/07/20 05:59 13:59 21:59 Intake Total 650 50 Balance 650 50 Intake: IV 250 50 Veklury 100 mg In Sodium 250 Chloride 0.9% 250 ml @ 500 mls/ hr IV Q24H [facility] Rx#:[id number] Rocephin 2 gm In Dextrose 5% in 50 Water 50 ml @ 100 mls/hr IV Q24H [facility] Rx#:[id number] Oral 400 Other: Meal Dinner Percent of Meal Consumed 50% Additional findings Additional findings: General: Alert, Awake, No acute Distress Eyes/N/T: EOMI, PERRL, dry MM Head/Neck: neck supple no meningismus , normocephalic atraumatic CV: RRR, No murmurs, normal s1/s2 Pulm: Coarse breathing sounds Abd: soft, nontender, +BS x4 Ext: no clubbing/cyanosis/edema Neuro: Alert & Oriented x 2, no focal neurological deficits Skin: warm/dry Psych: Normal mood OBJ DATA Labs CBC & Chem 7: 08/07/20 05:35 08/07/20 05:06 Labs: Abnormal Lab Results 08/07/20 08/07/20 08/06/20 05:35 05:06 07:41 WBC MPV 11.3 H Neut % (Auto) Lymph # (Auto) 1.49 L D-Dimer 0.73 H Glucose 211 H Hemoglobin A1c Calcium Phosphorus Ferritin GGT 95 H AST ALT C-Reactive Protein Triglycerides 168 H Procalcitonin 08/06/20 08/06/20 08/05/20 05:39 05:39 13:20 WBC 4.4 L MPV 11.5 H Neut % (Auto) Lymph # (Auto) 1.03 L D-Dimer Glucose 211 H Hemoglobin A1c 8.6 H Calcium 8.4 L Phosphorus 2.3 L Ferritin 225.4 H GGT AST ALT C-Reactive Protein 8.50 H Triglycerides Procalcitonin 08/05/20 08/05/20 08/05/20 09:47 09:47 09:46 WBC MPV 11.6 H Neut % (Auto) 79.2 H Lymph # (Auto) 0.95 L D-Dimer Glucose 162 H Hemoglobin A1c Calcium 8.1 L Phosphorus Ferritin GGT AST 45 H ALT 45 H C-Reactive Protein Triglycerides Procalcitonin 0.12 H Meds: Medications Albuterol Sulfate (Ventolin) 2.5 mg INH Q2HP PRN PRN Reason: Shortness Of Breath Albuterol/Ipratropium (Duoneb) 3 ml NEB Q4HRT PRN PRN Reason: Shortness Of Breath Last Admin: 08/07/20 08:54 Dose: 3 ml Documented by: Alprazolam (Xanax) 1 mg PO HSP PRN PRN Reason: Anxiety Aspirin (Aspirin) 81 mg CHEWED DAILY [facility] Last Admin: 08/07/20 08:55 Dose: 81 mg Documented by: Bupropion HCl (Wellbutrin Xl) 150 mg PO QAM [facility] Last Admin: 08/07/20 08:55 Dose: 150 mg Documented by: Chlorthalidone (Hygroton) 25 mg PO DAILY [facility] Last Admin: 08/07/20 08:55 Dose: 25 mg Documented by: Dexamethasone (Decadron) 6 mg PO DAILY [facility] Last Admin: 08/07/20 08:54 Dose: 6 mg Documented by: Dextrose (Dextrose 50%) 0 ml IV UD PRN PRN Reason: Hypoglycemia Diagnostic Test (Pha) (Accu-Chek) 1 each FS ACHS [facility] Last Admin: 08/07/20 11:37 Dose: 1 each Documented by: Docusate Sodium (Colace) 100 mg PO BID [facility] Last Admin: 08/07/20 08:54 Dose: 100 mg Documented by: Enoxaparin Sodium (Lovenox) 100 mg SQ BID [facility] Last Admin: 08/07/20 08:53 Dose: 100 mg Documented by: Glucose (Insta-Glucose) 15 gm PO PRN PRN PRN Reason: Hypoglycemia Hydralazine HCl (Apresoline) 10 mg IV Q4-6HP PRN PRN Reason: Hypertension Ceftriaxone Sodium 2 gm/ (Dextrose) 50 mls @ 100 mls/hr IV Q24H [facility] Last Infusion: 08/07/20 09:55 Dose: Infused Documented by: REMDESIVIR 100 mg/ Sodium (Chloride) 250 mls @ 500 mls/hr IV Q24H [facility] Stop: 08/09/20 11:29 Last Admin: 08/07/20 11:36 Dose: 500 mls/hr Documented by: Insulin Glargine (Lantus) 16 unit SQ HS [facility] Insulin Human Lispro (Humalog) 0 unit SQ ACHS [facility]; Protocol Last Admin: 08/07/20 11:45 Dose: 6 unit Documented by: Levothyroxine Sodium (Synthroid) 50 mcg PO QAMAC [facility] Last Admin: 08/07/20 07:55 Dose: 50 mcg Documented by: Lisinopril (Zestril) 10 mg PO [facility] Last Admin: 08/06/20 21:11 Dose: 10 mg Documented by: Metoclopramide HCl (Reglan) 5 mg IV Q6HP PRN PRN Reason: Nausea And Vomiting Metoprolol Succinate (Toprol Xl) 25 mg PO DAILY [facility] Last Admin: 08/07/20 08:54 Dose: 25 mg Documented by: Pantoprazole [facility]odium ([facility]tonix) [facility] Last Admin: 08/07/20 07:56 Dose: 40 mg Documented by: Semaglutide [Ozempic (] 1 Mg Syringe) 1 dose SUB-Q QWEEK [facility] Biest 0.5 Mg Tab 1 dose PO DAILY [facility] Last Admin: 08/07/20 07:58 Dose: 1 dose Documented by: Fluvoxamine 50 Mg (Tab) 3 dose PO [facility] Last Admin: 08/06/20 21:12 Dose: 3 dose Documented by: Senna (Senokot) 2 tab PO [facility] Last Admin: 08/06/20 21:12 Dose: Not Given Documented by: Sodium Chloride (Saline Flush) 10 ml IV Q8 [facility] Last Admin: 08/07/20 14:10 Dose: Not Given Documented by: Trazodone HCl (Desyrel) 50 mg PO QHS [facility] Last Admin: 08/06/20 21:11 Dose: 50 mg Documented by: A/P Narrative A/P Narrative: 1. Acute hypoxic respiratory failure In the ER, she was evaluated with desaturation 89% Pulse ox Oxygen therapy to keep her saturation greater than 93% 2. Pneumonia, covid 19 or CAP Respiratory panel negative COVID-19 positive 9 days ago MRSA screen negative Blood culture negative procalcitonin 0.12, ferritin 225.4, CRP 8.5, D-dimer 0.73 Aspirin 81 mg daily Remdesivir -5-day course Dexamethasone 6 mg p.o. daily x 10 days Lovenox 100 mg twice daily Thiamine and vitamin D 3. Transaminitis Repeat liver enzyme in morning 4. HTN Continue home medication 5. DM type 2 Hemoglobin A1c 8.6 Diabetic diet Insulin sliding scale We will adjust insulin based on blood sugar level 6. Hypothyroidism Continue home Synthroid 7. DVT prophylaxis: Lovenox 8. 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
[2020-08-07] MEDS ORDERED: INSULIN GLARGINE, HUMAN 1 UNIT/0.01 ML SQ SCH (21:00)
[2020-08-07] MEDS: SENNOSIDES 1 TABLET PO SCH (21:05)
[2020-08-07] MEDS: LISINOPRIL 10 MG TABLET PO SCH (21:09)
[2020-08-07] MEDS: traZODone HCL 50 MG TABLET PO SCH (21:09)
[2020-08-08] MEDS: 0.9 % SODIUM CHLORIDE 10 ML SYRINGE IV SCH (05:34)
[2020-08-08 06:56] LABS: Basophils # (Auto) 0.01 K/mcL (0.00-0.20); Basophils % (Auto) 0.2 % (0.0-2.0); Eosinophils # (Auto) 0 K/mcL (0.00-0.70); Eosinophils % (Auto) 0 % (0.0-7.0); Hematocrit 38.8 % (36.0-48.0); Hemoglobin 13.1 g/dL (12.0-15.0); Lymphocytes # (Auto) 1.86 K/mcL (1.50-4.80); Lymphocytes % (Auto) 33.3 % (15.0-49.0); Mean Cell Volume 87.2 fL (80.0-100.0); Mean Corpuscular HGB Conc 33.8 g/dL (31.0-36.0); Mean Platelet Volume 11.4 fL (7.4-10.4); Monocytes # (Auto) 0.46 K/mcL (0.10-0.90); Monocytes % (Auto) 8.2 % (1.0-12.0); Neutrophils % (Auto) 58.3 % (38.0-78.0); Platelet Count 344 K/mcL (140-440); RBC 4.45 M/mcL (4.00-5.20); Red Cell Distribution Width 12.3 % (11.5-14.5); WBC 5.6 K/mcL (4.5-11.0)
[2020-08-08] MEDS: PANTOPRAZOLE 40 MG TABLET PO SCH (07:52)
[2020-08-08] MEDS: LEVOTHYROXINE 50 MCG TABLET PO SCH (07:52)
[2020-08-08] MEDS: BIEST PO SCH (07:57)
[2020-08-08] MEDS: INSULIN LISPRO 1 UNIT/0.01 ML UNIT SQ SCH ×2 (07:59→11:25)
[2020-08-08 08:07] LABS: ALT/SGPT 41 U/L (<40); AST/SGOT 31 U/L (<32); Albumin 3.4 gm/dL (3.2-5.2); Albumin/Globulin Ratio 0.9 (1.0-2.3); Alkaline Phosphatase 80 U/L (39-117); Bilirubin,Total 0.3 mg/dL (0.1-1.0); Blood Urea Nitrogen 16 mg/dL (6-20); Calcium 9.1 mg/dL (8.6-10.4); Carbon Dioxide 22 mmol/L (22-30); Chloride 102 mmol/L (96-108); Globulin 3.6 gm/dL (2.2-3.7); Glomerular Filtration Rate 89; Glucose 234 mg/dL (70-105)
[2020-08-08] MEDS: cefTRIAXone 2 GM in DEXTROSE 5% IN WATER 50 ML IV SCH (09:56)
[2020-08-08] MEDS: ENOXAPARIN 100 MG/ML SYRINGE SQ SCH (09:57)
[2020-08-08] MEDS: ASPIRIN 81 MG TAB.CHEW CHEWED SCH (09:58)
[2020-08-08] MEDS: buPROPion 150 MG TAB.XL.24H PO SCH (09:58)
[2020-08-08] MEDS: CHLORTHALIDONE 25 MG TABLET PO SCH (09:58)
[2020-08-08] MEDS: DEXAMETHASONE 4 MG TABLET PO SCH (09:58)
[2020-08-08] MEDS: DOCUSATE SODIUM 100 MG CAPSULE PO SCH (09:58)
[2020-08-08] MEDS: METOPROLOL SUCCINATE 25 MG TAB.XL.24H PO SCH (09:59)
[2020-08-08] MEDS: REMDESIVIR 100 MG in 0.9 % SODIUM CHLORIDE 250 ML IV SCH (10:35)
--- NOTE | 2020-08-08 11:46 | Discharge Summary ---
Discharge Provider Provider Patient information: Note initiated : 08/08/20 at 11:35 am Service Date, if different from initiated Date: [] Patient: Marisela Carr 45 y/o F admitted on 08/05/20 for SOB, COVID Positive. Chief Complaint: [] Date of admission: 08/05/20 13:25 Discharge date: 08/08/20 Primary care physician: Malaika Cotter Consults: 08/05/20 11:48 Consult to Physician [CONS] Stat Comment: Consulting Provider: Hipolito Marquez Reason For Exam: Physician to Consult Discharge Meds Discharge Medications Home Medications levothyroxine 50 mcg PO DAILY 10/20/18 [History Confirmed 08/05/20 Last Taken 08/03/20] alprazolam 1 mg tablet 1 mg PO HSP PRN #30 tab 07/16/19 [Rx Confirmed 08/05/20 Last Taken 08/03/20] Biest .5/1 0.5 mg PO DAILY 08/02/19 [History Confirmed 08/06/20 Last Taken 08/03/20] meclizine 12.5 mg tablet 12.5 mg PO .Q4-6H PRN tab 08/02/19 [History Confirmed 08/05/20 Last Taken 07/06/20] omeprazole 20 mg capsule,delayed release 20 mg PO BID #60 cap 01/03/20 [Rx Confirmed 08/05/20 Last Taken 06/06/20] bupropion HCl 150 mg 24 hr tablet, extended release 150 mg PO QAM #90 tab 01/16/20 [Rx Confirmed 08/05/20 Last Taken 08/03/20] semaglutide 1 mg/dose (2 mg/1.5 mL) subcutaneous pen injector 1 mg SUB-Q QWEEK #3 ml 01/16/20 [Rx Confirmed 08/05/20 Last Taken 07/29/20] chlorthalidone 25 mg tablet 25 mg PO DAILY #90 tab 02/04/20 [Rx Confirmed 08/05/20 Last Taken 08/03/20] metformin 500 mg tablet 1,000 mg PO BID #360 tab 02/04/20 [Rx Confirmed 08/05/20 Last Taken 08/03/20] metoprolol succinate 25 mg tablet,extended release 24 hr See Rx Instructions .ROUTE .COMPLEX #90 tab 03/21/20 [Rx Confirmed 08/05/20 Last Taken 08/03/20] blood sugar diagnostic See Rx Instructions .ROUTE .COMPLEX #100 strip 04/07/20 [Rx Confirmed 08/05/20 Last Taken 08/04/20] lisinopril 10 mg tablet See Rx Instructions .ROUTE .COMPLEX #90 tab 05/06/20 [Rx Confirmed 08/05/20 Last Taken 08/03/20] fluvoxamine 50 mg tablet See Rx Instructions .ROUTE .COMPLEX #90 tab 05/21/20 [Rx Confirmed 08/05/20 Last Taken 08/03/20] albuterol sulfate 90 mcg/actuation aerosol inhaler 2 puff INHALATION .q4-6h PRN #8.5 g 07/04/20 [Rx Confirmed 08/05/20 Last Taken 08/05/20] albuterol sulfate 1 puff INHALATION Q8H PRN #6.7 g 08/08/20 [Rx Last Taken Unknown] aspirin 81 mg PO DAILY #14 tab 08/08/20 [Rx Last Taken Unknown] enoxaparin 100 mg SQ BID #15 ml 08/08/20 [Rx Last Taken Unknown] insulin glargine [Lantus U-100 Insulin] 16 unit SQ HS #3 ml 08/08/20 [Rx Last Taken Unknown] insulin lispro [Humalog U-100 Insulin] See Rx Instructions .ROUTE .COMPLEX #10 ml 08/08/20 [Rx Last Taken Unknown] trazodone 50 mg PO QHS #3 tab 08/08/20 [Rx Last Taken Unknown] COURSE Hospital Course Hospital course: Ms. Carr is a 45 year old F with a history of high blood pressure, diabetes type 2 and hypothyroidism who presented to the ER due to shortness of breath. As per patient, she was diagnosed with COVID-19 9 days ago. Today she feels shortness of breath and went to the ER. In the ER, she was found to have oxygen desaturation 89%. Chest x-ray showed mild patchy infiltrate left midlung and right base. When I saw this patient, other than the symptoms mentioned above, patient with a fine. 1. Acute hypoxic respiratory failure In the ER, she was evaluated with desaturation 89% Pulse ox Oxygen therapy to keep her saturation greater than 93%. Pt has been on RM > 24 hrs with good oxygen saturations. 2. Pneumonia, covid 19 or CAP Respiratory panel negative COVID-19 positive 9 days ago before admission MRSA screen negative Blood culture negative procalcitonin 0.12, ferritin 225.4, CRP 8.5, D-dimer 0.73 Aspirin 81 mg daily We will stop remdesivir today. In the hospital, she has been on dexamethasone 6 mg p.o. daily. Her condition is rapidly improved. Her blood glucose is high due to use of steroid. I will stop dexamethasone today (she has received 3 doses). Discussed that with [facility], we do not have any guideline about duration of anticoagulation. In the hospital, she has been Lovenox 100 mg twice daily. Her D-dimer was elevated. I will discharge her on Lovenox 100 mg twice a day for 7 days to follow with PCP. Instructed nurse to teach her how to inject Lovenox. She was advised to stop Lovenox and go to the ER immediately if bleeding occurs. Continue thiamine and vitamin D 3. Transaminitis Repeat liver enzyme in 3 days. 4. HTN Continue home medication 5. DM type 2 Hemoglobin A1c 8.6 Diabetic diet Insulin sliding scale Continue home medication. Adjusted Lantus to 13 units a day Please adjust insulin based on blood sugar levels 6. Hypothyroidism Continue home Synthroid Interval history 08/06 Still complains of shortness of breath. Otherwise she denies headache, fever, chills, nausea or vomiting. Vital signs are stable and acceptable. She is now on 2 L with good oxygen saturation. Hemoglobin A1c 8.6, Phos 2.3, procalcitonin 0.12, ferritin 225.4, CRP 8.5 08/07 When I saw this patient this morning, she was eating her breakfast. She does not have any complaints and feels fine. She is on room air to 1 L with good oxygen saturation. No overnight events 08/08 Today patient does not have any complaints and vital signs are stable. She has been on room air for more than 24 hours with good oxygen saturation. CM okay to home. She will be discharged home to follow with PCP. She was advised to be quarantined and do not drive. Repeat liver function in 3 days. Check blood glucose before each meal and at bedtime. Adjust insulin and oral diabetic medication based on blood sugar levels. Call PCP for medical issues. She will be discharged on Lovenox 100 mg twice a day for 7 days. Please follow with PCP to decide if you still needs Lovenox or not. Discharge diagnosis: Acute hypoxic respiratory failure, Pneumonia, covid 19 Time Spent with Patient Time attestation: Total time spent providing and/or coordinating discharge services: EXAM Constitutional Vitals: Temp Pulse Resp BP Pulse Ox 97.2 F 62 22 127/92 95 08/08/20 08:00 08/08/20 08:00 08/08/20 08:00 08/08/20 08:00 08/08/20 08:00 Additional findings Additional findings: General: Alert, Awake, No acute Distress Eyes/N/T: EOMI, PERRL, dry MM Head/Neck: neck supple no meningismus , normocephalic atraumatic CV: RRR, No murmurs, normal s1/s2 Pulm: Coarse breathing sounds (improved) Abd: soft, nontender, +BS x4 Ext: no clubbing/cyanosis/edema Neuro: Alert & Oriented x 3, no focal neurological deficits Skin: warm/dry Psych: Normal mood Discharge Data Data Completed and Pending Labs on day of discharge: Labs from last 24 hours 08/08/20 08/08/20 05:20 05:20 WBC 5.6 RBC 4.45 Hgb 13.1 Hct 38.8 MCV 87.2 MCH 29.4 MCHC 33.8 RDW 12.3 Plt Count 344 MPV 11.4 H Neut % (Auto) 58.3 Lymph % (Auto) 33.3 Walker % (Auto) 8.2 Eos % (Auto) 0 Baso % (Auto) 0.2 Lymph # (Auto) 1.86 Walker # (Auto) 0.46 Eos # (Auto) 0 Baso # (Auto) 0.01 Absolute Neutrophils 3.26 Sodium 138 Potassium 3.6 Chloride 102 Carbon Dioxide 22 Anion Gap 14.0 BUN 16 Creatinine 0.8 GFR Calculation 89 Glucose 234 H Calcium 9.1 Total Bilirubin 0.3 AST 31 ALT 41 H Alkaline Phosphatase 80 Total Protein 7.0 Albumin 3.4 Globulin 3.6 Albumin/Globulin Ratio 0.9 L Preliminary micro results at discharge 08/05/20 13:25 Blood Culture - Preliminary Blood 08/05/20 13:20 Blood Culture - Preliminary Blood Discharge Plan Patient/Caregiver Discharge Instructions Activity: increase activity as tolerated Diet: Consistent Carbohydrate Instructions: Pneumonia (GEN), COVID-19 (Coronavirus Disease 2019)(GEN) Activity Restrictions/Additional Instructions: to be quarantined and do not drive. Repeat liver function in 3 days. Check blood glucose before each meal and at bedtime. Adjust insulin and oral diabetic medication based on blood sugar levels. She will be discharged on Lovenox 100 mg twice a day for 7 days. Please follow with PCP to decide if you still needs Lovenox or not. Stop using Lovenox and go to the ER immediately if bleeding occurs. Call PCP for medical issues. This discharge packet is provided to you to help keep you informed about your care. We want to ensure you get everything you need when you go home. You will also be receiving a call from us in a few days to follow up with you and see how you are doing since your discharge. This gives us a chance to listen to any concerns you maybe experiencing since you were discharged or any additional needs you may have, as well as providing us feedback on your care experience. We strive to always provide excellent care and thank you for your feedback and for choosing [facility]. Prescriptions: New albuterol sulfate 90 mcg/actuation HFA aerosol inhaler 1 puff INHALATION Q8H PRN (Reason: shortness of breath or wheezing) Qty: 6.7 RF: 0 trazodone 50 mg Tablet 50 mg PO QHS Qty: 3 RF: 0 aspirin 81 mg Tablet,Chewable 81 mg PO DAILY Qty: 14 RF: 0 Lantus U-100 Insulin 100 unit/mL Solution 16 unit SQ HS Qty: 3 RF: 0 insulin lispro [Humalog U-100 Insulin] 100 unit/mL Solution See Rx Instructions .ROUTE .COMPLEX Qty: 10 RF: 0 enoxaparin 100 mg/mL Syringe 100 mg SQ BID Qty: 15 RF: 0 Continued omeprazole 20 mg capsule,delayed release(DR/EC) 20 mg PO BID Qty: 60 RF: 4 semaglutide 1 mg/dose (2 mg/1.5 mL) subcutaneous pen injector 1 mg/dose (2 mg/1.5 mL) pen injector 1 mg SUB-Q QWEEK Qty: 3 RF: 4 bupropion HCl 150 mg tablet extended release 24 hr 150 mg PO QAM Qty: 90 RF: 1 alprazolam 1 mg tablet 1 mg PO HSP PRN (Reason: Anxiety) Qty: 30 RF: 1 chlorthalidone 25 mg tablet 25 mg PO DAILY Qty: 90 RF: 3 metformin [Glucophage] 500 mg tablet 1,000 mg PO BID Qty: 360 RF: 3 metoprolol succinate 25 mg tablet extended release 24 hr See Rx Instructions .ROUTE .COMPLEX Qty: 90 RF: 0 blood sugar diagnostic [Contour Next Test Strips] Strip See Rx Instructions .ROUTE .COMPLEX Qty: 100 RF: 3 lisinopril 10 mg tablet See Rx Instructions .ROUTE .COMPLEX Qty: 90 RF: 1 fluvoxamine 50 mg tablet See Rx Instructions .ROUTE .COMPLEX Qty: 90 RF: 1 Biest .5/1 0.5 mg PO DAILY RF: 0 meclizine 12.5 mg tablet 12.5 mg tablet 12.5 mg PO .Q4-6H PRN (Reason: Vertigo) RF: 0 albuterol sulfate [ProAir HFA] 90 mcg/actuation HFA aerosol inhaler 2 puff INHALATION .q4-6h PRN (Reason: cough, shortness of breath, wheezing) Qty: 8.5 RF: 0 levothyroxine 50 MCG tablet 50 mcg PO DAILY RF: 0 Discontinued insulin aspart U-100 100 unit/mL (3 mL) insulin pen 20 unit SUB-Q TID Qty: 30 RF: 6 amoxicillin 500 mg capsule 1,000 mg PO Q12H Qty: 40 RF: 0 ondansetron HCl [Zofran] 4 mg tablet 4 mg PO Q8H PRN (Reason: nausea and vomiting) Qty: 30 RF: 0 acetaminophen-codeine 300-30 mg tablet 1 - 2 tab PO Q6H PRN (Reason: Pain) Qty: 30 RF: 3 trazodone 50 mg tablet 100 mg PO QHS Qty: 180 RF: 3 insulin degludec [Tresiba FlexTouch U-100] 100 unit/mL (3 mL) insulin pen See Rx Instructions .ROUTE .COMPLEX Qty: 15 RF: 3 Other Ambulatory Orders: Complete Blood Count (Routine) Timeframe: 3 Days Facility: [facility] - Location: Laboratory Ordered By: Hipolito Marquez Comprehensive Metabolic Panel (Routine) Timeframe: 3 Days Facility: [facility] - Location: Laboratory Ordered By: Hipolito Marquez Follow Up Plan Follow up with: Cotter,Malaika M, MACHINE TECHNICIAN [Primary Care Provider] - 08/20/20 9:15 am (in 3 days) Patient Disposition: Home, Self-Care Prognosis: Fair Discharge Orders: Discharge Order (Routine); Ordered 08/08/20 Ordered By: Hipolito GILLETTE VTE Deep Vein Thrombosis/Pulmonary Embolism Present on Admission: No
[2020-08-12] MEDS ORDERED: SEMAGLUTIDE 1 MG SUB-Q SCH (09:00)
== END 2020-08-08 13:50 | disposition home or self-care (01) | DRG 189 ==
LOC: ED 09:18 → ICU 13:25
PROVIDERS: ADMIT Internal Medicine; ATTEND Internal Medicine